=== PATIENT | female | born 2000 | race Two or more races ===

== ENCOUNTER 2024-03-05 09:28 | Outpatient (CLI) | payer OTHER | END 2024-03-05 09:38 | disposition home or self-care (01) | LOC: TOM 09:28 | PROVIDERS: ATTEND Obstetrics & Gynecology | DX: N94.6 Dysmenorrhea, unspecified (principal) ==

== ENCOUNTER 2025-02-24 13:00 | Day surgery (SDC) | payer OTHER ==
[2025-02-22 08:39] LABS: URINE APPEARANCE Clear; URINE BILIRRUBIN Negative (NEGATIVE); URINE BLOOD Negative; URINE COLOR Yellow; URINE GLUCOSE Negative (NEGATIVE); URINE KETONE Negative (NEGATIVE); URINE LEUKOCYTE Negative; URINE NITRATE Negative; URINE PROTEIN Negative (NEGATIVE); URINE UROBILINOGEN 0.2 E.U./dl
[2025-02-22 08:41] LABS: BASO % 1.1 % (0.1-1.2); EOS # 0.09 (0.04-0.54); EOS % 1.2 % (0.7-7.0); LYMPH # 2.07 (1.18-3.74); LYMPH % 28.6 % (19.3-53.1); MEAN PLATELET VOLUME 11.00 fl (9.4-12.4); MONO # 0.65 (0.24-0.82); MONO % 9.0 % (4.7-12.5); NEUT # 4.35 (1.56-6.13); NEUT % 60.0 % (34.0-71.1); RED CELL DISTRIBUTION WIDTH 15.1 % (11.6-14.4)
[2025-02-22 08:43] LABS: URINE BACTERIA 171.5 uL (0.0-1933); URINE EPITHELIAL CELLS 21.3 uL (0.0-38.8); URINE RBC 6.5 uL (0.0-20.8); URINE WBC 12.7 uL (0.0-23.2)
[2025-02-22 09:00] LABS: URINE CAST 0.00 uL (0.0-1.40)
[2025-02-22 09:26] LABS: INR 1.05
[2025-02-22 09:35] LABS: BUN CREA RATIO 14.0 (7.0-25.0); CREATININE SERUM 0.57 mg/dL (0.55-1.02); GFR 129.23; GLUCOSE FASTING 87.0 mg/dL (65-100); OSMOLALITY SERUM 275.0 MOSM/KG (275-295)
[~2025-02-24 13:00] MED LIST: CEFTRIAXONE SODIUM 2,000 MG VIAL ONE; ENOXAPARIN SODIUM 40 MG/0.4 ML SYRINGE SUBCUTANEO ONE; METRONIDAZOLE/SODIUM CHLORIDE 500 MG/100 ML PIGGYBACK IV ONE
[2025-02-24] MEDS ORDERED: POVIDONE-IODINE 118 ML BOTT TOP ONE (13:57)
[2025-02-24] MEDS ORDERED: METHYLENE BLUE 50MG/10ML AMP IV ONE (13:58)
[2025-02-24] MEDS ORDERED: SUGAMMADEX SODIUM 200 MG/2 ML VIAL IV ONE (14:32)
[2025-02-24] MEDS ORDERED: CELEBREX200MG PO (15:01)
[2025-02-24] MEDS ORDERED: MORPHINE SULFATE 4 MG/ML VIAL IV ONE ×2 (16:15→16:45)
== END 2025-02-24 17:10 | disposition home or self-care (01) ==
LOC: CIR.AMB 13:00
PROVIDERS: ATTEND Surgery
DX: K43.0 Incisional hernia with obstruction, without gangrene (principal); N73.6 Female pelvic peritoneal adhesions (postinfective); N85.00 Endometrial hyperplasia, unspecified; Z91.040 Latex allergy status